=== PATIENT | female | born 1995 | race Two or more races ===

== ENCOUNTER 2019-05-02 20:40 | Emergency (ER) | payer OTHER, SELFPAY ==
[2019-05-02 20:44] VITALS: BP 130/84; PULSE 101; RESP 16; TEMP 36.7; O2SAT 100
[2019-05-02 20:47] VITALS: O2SAT 99
--- NOTE | 2019-05-02 20:56 | ED.URI ---
HPI - URI/Sore Throat General Chief Complaint: Upper Respiratory Infection Stated Complaint: URI, wants tested for COVID Time Seen by Provider: 05/02/19 20:53 Source: patient and RN notes reviewed Mode of arrival: other Limitations: no limitations History of Present Illness HPI Narrative: Pt is a 23 y/o female who presents to the ED with c/o an upper respiratory infection. Pt states that she has been sick with flu like sx since (04/27/19). 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 Pt wants to be tested for COVID. Pt also reports nausea, fatigue, fever, cough, loss of taste of salt, and loss of smell. MD elicited complaint: other (upper respiratory infection) Onset (ago): day(s) (5) Consistency: other (still present) Able to tolerate fluids by mouth: Yes Associated symptoms: fever, cough, nausea and other (fatigue, loss of taste of salt, loss of smell) Related Data Home Medications Medication Instructions Recorded Confirmed No Home Medications 05/02/19 Allergies Allergy/AdvReac Type Severity Reaction Status Date / Time No Known Allergies Allergy Verified 05/02/19 20:48 Review of Systems Review of Systems: All systems reviewed & are unremarkable except as noted in HPI and below Constitutional: Constitutional: Reports fatigue and Reports fever(s) ENT: Reports other (loss of taste of salt, loss of smell) Respiratory: Respiratory: Reports cough Gastrointestinal: Gastrointestinal: Reports nausea PMFSH Past Medical History Medical History (Updated 05/02/19 @ 21:05 by Sigifredo Espino MD) Patient denies significant medical history Surgical History Surgical History (Updated 05/02/19 @ 21:02 by Belgica Moore) No history of previous surgery Social History Social History (Updated 05/02/19 @ 21:03 by Belgica Moore) Smoking status: Never smoker Gender identity (if verbalized by the patient): Female Exam Const: General: healthy appearing, no acute distress and alert Nutritional Appearance: well nourished Orientation/consciousness: patient oriented x3 HENMT: Head: normal to inspection Resp: Effort & Inspection: normal respiratory effort Skin: General skin exam: normal color Neuro: General: patient oriented x3 and moves all extremities Speech: normal speech Course Vital Signs Vital signs: Vital Signs Temperature 36.7 C 05/02/19 20:44 Pulse Rate 101 H 05/02/19 20:44 Respiratory Rate 16 05/02/19 20:44 Blood Pressure 130/84 05/02/19 20:44 Pulse Oximetry 100 05/02/19 20:44 Temperature 37.0 C 05/02/19 21:45 Pulse Rate 98 05/02/19 21:45 Respiratory Rate 18 05/02/19 21:45 Blood Pressure 131/68 05/02/19 21:45 Pulse Oximetry 100 05/02/19 21:45 MDM - URI/Sore Throat Differential Diagnosis Differential diagnosis: Likely upper respiratory infection, viral infection, influenza and other (COVID-19) Medical Records Attestation: I reviewed the patient's medical records. Lab Data Attestation: I reviewed the patient's lab results. Labs: Influenza A Screen Negative Reference Range: Negative Influenza B Screen Negative Reference Range: Negative Discharge Plan Discharge Clinical Impression: Upper respiratory infection Qualifiers: URI type: unspecified URI Qualified Code(s): J06.9 - Acute upper respiratory infection, unspecified Patient Disposition: Home, Self-Care Condition: Stable Instructions: Upper Respiratory Infection (ED) Prescriptions: No Action No Home Medications RF: 0 Follow-up/Referrals: Haroon Wong MD [Physician] - PHYSICIAN,RESEARCH NUTRITIONIST [Non-Staff] - Discharge Date/Time: 05/02/19 21:47
[2019-05-02 21:45] VITALS: BP 131/68; PULSE 98; RESP 18; TEMP 37; O2SAT 100
== END 2019-05-02 21:47 | disposition home or self-care (01) ==
PROVIDERS: Emergency Provider Emergency Medicine
DX: J06.9 Acute upper respiratory infection, unspecified (principal)
CPT/HCPCS: 87804; 99283